=== PATIENT | male | born 1960 | race African-American/Black ===

== ENCOUNTER 2019-12-28 03:20 | Emergency (ER) | payer MEDICAID, OTHER ==
[~2019-12-28] VITALS: Ht 177.8 cm; Wt 91.0 kg
[2019-12-28 03:25] VITALS: BP 156/68
[2019-12-28] MEDS ORDERED: LEVETIRACETAM 500MG PREMIX 100 ML IV ONE (03:30)
[2019-12-28] MEDS ORDERED: DOPAMINE 400MG/250ML PREMIX 250 ML IV ONE ×2 (03:30→03:37)
[2019-12-28] MEDS ORDERED: SODIUM CHLORIDE 0.9% 250 ML IV ONE (03:30)
[2019-12-28] MEDS ORDERED: NOREPINEPHRINE 4 MG in DEXT 5% WATER 246 ML IV ONE (03:30)
[2019-12-28] MEDS ORDERED: EPINEPHRINE 0.1MG/ML (1:10,000) 10ML SYR ONE ×2 (03:35→04:02)
== END 2019-12-28 03:58 | disposition expired ==
LOC: ER 03:20 → CANBEDREQ 09:43
DX: I46.9 Cardiac arrest, cause unspecified (principal); R56.9 Unspecified convulsions; E11.22 Type 2 diabetes mellitus with diabetic chronic kidney disease; N18.6 End stage renal disease; Z99.2 Dependence on renal dialysis
CPT/HCPCS: 31500; 36556; 82962; 96374; 99285; J1265; J3490; J7050; J7060